=== PATIENT | male | born 1940 | race Caucasian/White ===

== ENCOUNTER 2025-07-14 06:36 | Outpatient (RCR) | payer OTHER, SELFPAY | END 2025-07-14 23:59 | disposition home or self-care (01) | LOC: RPT 06:36 | PROVIDERS: ATTENDING PHYSICIAN Family Medicine | DX: M47.816 Spondylosis without myelopathy or radiculopathy, lumbar region (principal); Z73.6 Limitation of activities due to disability; V18.0XXD Pedal cycle driver injured in noncollision transport accident in nontraffic accident, subsequent encounter | CPT/HCPCS: 97110; 97162 ==

== ENCOUNTER 2025-07-27 07:50 | Outpatient (RCR) | payer OTHER, SELFPAY | END 2025-07-27 12:37 | disposition home or self-care (01) | LOC: RPT 07:50 | PROVIDERS: ATTENDING PHYSICIAN Family Medicine | DX: M47.816 Spondylosis without myelopathy or radiculopathy, lumbar region (principal); Z73.6 Limitation of activities due to disability; V18.0XXD Pedal cycle driver injured in noncollision transport accident in nontraffic accident, subsequent encounter | CPT/HCPCS: 97110 ==